=== PATIENT | male | born 1960 | race American Indian/Alaskan Native ===

== ENCOUNTER 2017-10-21 00:13 | Emergency (ER) | payer SELFPAY ==
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
[2017-10-21] MEDS ORDERED: BACTRIM DS PO ONE (07:39)
[2017-10-21] MEDS ORDERED: BOOSTRIX IM ONE (07:39)
[2017-10-21 07:46] VITALS: BP 162/84
[2017-10-21] MEDS ORDERED: VASELINE TP ONE (08:30)
[2017-10-21] MEDS ORDERED: POLYSPORIN TP NR (08:30)
== END 2017-10-21 09:08 | disposition home or self-care (01) ==
LOC: ED 00:13
DX: T23.102A Burn of first degree of left hand, unspecified site, initial encounter (principal); I10 Essential (primary) hypertension; E78.00 Pure hypercholesterolemia, unspecified; X08.8XXA Exposure to other specified smoke, fire and flames, initial encounter; Y93.89 Activity, other specified; Y92.89 Other specified places as the place of occurrence of the external cause; Y99.8 Other external cause status
CPT/HCPCS: 90471; 90715; A6250